=== PATIENT | female | born 1990 | race Caucasian/White ===

== ENCOUNTER 2017-03-24 19:01 | Emergency (ER) | payer OTHER ==
[2017-03-24 21:24] VITALS: BP 112/60
== END 2017-03-24 21:24 | disposition home or self-care (01) ==
LOC: ED 19:01
DX: J98.01 Acute bronchospasm (principal); F17.200 Nicotine dependence, unspecified, uncomplicated; Z98.51 Tubal ligation status
CPT/HCPCS: 99406; J2930; J7613; J7644

== ENCOUNTER 2017-08-02 13:44 | Emergency (ER) | payer OTHER ==
[~2017-08-02] VITALS: Ht 152.4 cm; Wt 54.9 kg
[2017-08-02 14:03] VITALS: BP 106/69; Ht 152.4 cm; Wt 54.9 kg
== END 2017-08-02 15:55 | disposition home or self-care (01) ==
LOC: ED 13:44
DX: F43.9 Reaction to severe stress, unspecified (principal)

== ENCOUNTER 2017-08-22 16:07 | Emergency (ER) | payer OTHER ==
[~2017-08-22] VITALS: Ht 160 cm; Wt 54.9 kg
[2017-08-22 16:17] VITALS: BP 121/73; Ht 160 cm; Wt 54.9 kg
== END 2017-08-22 19:54 | disposition left against medical advice (07) ==
LOC: ED 16:07
DX: Z53.21 Procedure and treatment not carried out due to patient leaving prior to being seen by health care provider (principal)

== ENCOUNTER 2018-11-21 11:22 | Emergency (ER) | payer SELFPAY ==
[~2018-11-21] VITALS: Ht 152.4 cm; Wt 52.2 kg
[2018-11-21 12:45] LABS: CALCIUM 8.6 mg/dL (8.5-10.1); CARBON DIOXIDE 28.4 mmol/L (21-32); CHLORIDE SERUM 102 mmol/L (98-107); CREATININE SERUM 0.5 mg/dL (0.6-1.0); GFR1 > 60 mL/min; GLUCOSE SERUM 93 mg/dL (74-106); POTASSIUM SERUM 3.9 mmol/L (3.5-5.1); SODIUM SERUM 137 mmol/L (136-145)
[2018-11-21 12:50] LABS: ALBUMIN 3.9 g/dL (3.4-5.0); ALKALINE PHOSPHATASE 63 U/L (46-116); ALT/SGPT 17 U/L (14-59); AST/SGOT 15 U/L (15-37); TOTAL PROTEIN, SERUM 7.2 g/dL (6.4-8.2)
[2018-11-21 13:50] VITALS: BP 111/63
== END 2018-11-21 13:50 | disposition home or self-care (01) ==
LOC: ED 11:22
PROVIDERS: Emergency Medicine
DX: M62.838 Other muscle spasm (principal); F17.210 Nicotine dependence, cigarettes, uncomplicated
CPT/HCPCS: 36415; 99406